=== PATIENT | female | born 1970 | race Caucasian/White ===

== ENCOUNTER 2018-06-10 17:37 | Inpatient (IN) | payer OTHER ==
[~2018-06-10] VITALS: Ht 165.1 cm; Wt 93.1 kg
[2018-06-10 18:40] LABS: BASOPHILS ABSOLUTE AUTO 0.02 K/mm3 (0.00-0.23); BASOPHILS PERCENT AUTO 1 % (0-2); EOSINOPHILS PERCENT AUTO 0 % (0-6); Hematocrit 43.3 % (33.0-51.0); IMMATURE GRAN ABSOLUTE AUTO 0.01 K/mm3 (0.00-0.10); IMMATURE GRAN PERCENT AUTO 0 % (0-1); LYMPHOCYTES ABSOLUTE AUTO 0.43 K/mm3 (0.84-5.20); LYMPHOCYTES PERCENT AUTO 13 % (21-46); MONOCYTES PERCENT AUTO 3 % (4-13); Mean Corpuscular HGB 29.7 pg (26.0-34.0); Mean Corpuscular HGB Conc 32.3 g/dL (31.5-36.5); Mean Corpuscular Volume 92 fL (80-100); Mean Platelet Volume 10.4 fL (9.1-12.4); NEUTROPHILS ABSOLUTE AUTO 2.67 K/mm3 (1.96-9.15); NEUTROPHILS PERCENT AUTO 83 % (41-73); Platelet Count 99 K/mm3 (150-400); RDW Coefficient Variation 12.7 % (11.7-14.2); RDW Standard Deviation 43.2 fL (35.1-46.3); Red Blood Cell Count 4.71 M/mm3 (3.80-5.20); White Blood Cell Count 3.23 K/mm3 (4.00-11.30)
[2018-06-10 19:01] LABS: Troponin I 0.017 ng/mL (0.000-0.040)
[2018-06-10 19:02] LABS: Alanine Aminotransfer (ALT/SGP 543 U/L (12-78); Albumin/Globulin Ratio 0.7 (0.8-1.8); Alk Phos 353 U/L (50-136); Anion Gap 8 mmol/L (6-16); Aspartate Aminotrans (AST/SGOT 619 U/L (12-37); Bilirubin, Total 0.5 mg/dL (0.1-1.0); Blood Urea Nitrogen 16 mg/dL (8-24); Bun/Creatinine Ratio 20.4 (12.0-20.0); CO2, Blood 22 mmol/L (21-32); Calcium, Blood 7.9 mg/dL (8.5-10.1); Chloride, Blood 102 mmol/L (98-108); Creatinine, Blood 0.79 mg/dL (0.40-1.00); Globulin, Blood 4.4 g/dL (2.2-4.0); Glomerular Filtration Rate >60 (60-); Glucose, Blood 218 mg/dL (70-99); Potassium, Blood 3.9 mmol/L (3.5-5.5); Sodium, Blood 132 mmol/L (136-145); Total Protein, Blood 7.4 g/dL (6.4-8.2)
[2018-06-10 19:11] LABS: Base Excess Venous 4.3 mmol/L; Bicarbonate Venous 27.5 mmol/L (24.0-30.0); PCO2 Venous 41.2 mmHg (38-42); PO2 Venous 42.8 mmHg (38-42); pH Blood Venous 7.45 (7.34-7.37)
[2018-06-10] MEDS ORDERED: TYLENOL COLD &1 EAC1 PO (20:32)
[2018-06-10] MEDS ORDERED: GUAIFENESIN DA473 ML (20:33)
[2018-06-10] MEDS ORDERED: IBUP600 PO (20:33)
[2018-06-10] MEDS ORDERED: ACET325 PO (22:49)
[2018-06-10] MEDS ORDERED: [UNRECOGNIZED DRUG - REMARK] PO (22:51)
[2018-06-10] MEDS ORDERED: TUMS200 MG PO (22:52)
[2018-06-10] MEDS ORDERED: [UNRECOGNIZED DRUG - SUPPLY] PO (22:54)
[2018-06-10] MEDS ORDERED: [UNRECOGNIZED DRUG - OTHER] PO (22:55)
[2018-06-10] MEDS ORDERED: MELATONIN5 M1 PO (22:56)
[2018-06-11 05:22] LABS: Hematocrit 39.7 % (33.0-51.0); Hemoglobin 13.1 g/dL (11.5-16.0); Mean Corpuscular HGB 29.1 pg (26.0-34.0); Mean Platelet Volume 10.7 fL (9.1-12.4); Platelet Count 122 K/mm3 (150-400); RDW Coefficient Variation 12.7 % (11.7-14.2); RDW Standard Deviation 41.1 fL (35.1-46.3); White Blood Cell Count 2.63 K/mm3 (4.00-11.30)
[2018-06-11 05:31] LABS: Mean Corpuscular Volume 88 fL (80-100)
[2018-06-11 05:40] LABS: Alanine Aminotransfer (ALT/SGP 507 U/L (12-78); Albumin, Blood 2.8 g/dL (3.4-5.0); Albumin/Globulin Ratio 0.7 (0.8-1.8); Alk Phos 372 U/L (50-136); Anion Gap 5 mmol/L (6-16); Aspartate Aminotrans (AST/SGOT 543 U/L (12-37); Bilirubin, Total 0.6 mg/dL (0.1-1.0); Blood Urea Nitrogen 13 mg/dL (8-24); Bun/Creatinine Ratio 18.2 (12.0-20.0); CO2, Blood 29 mmol/L (21-32); Calcium, Blood 7.6 mg/dL (8.5-10.1); Chloride, Blood 99 mmol/L (98-108); Creatinine, Blood 0.72 mg/dL (0.40-1.00); Globulin, Blood 4.1 g/dL (2.2-4.0); Glomerular Filtration Rate >60 (60-); Glucose, Blood 258 mg/dL (70-99); Potassium, Blood 3.8 mmol/L (3.5-5.5); Sodium, Blood 133 mmol/L (136-145); Total Protein, Blood 6.9 g/dL (6.4-8.2)
--- NOTE | 2018-06-11 07:27 | NUR ---
Rn summary: Patient is alert and oriented. Pt was admitted due to Inf A and PNA with hypoxia. Pt had a temp of 102.9 in the ED. Temp remained 102.4 2 hours after tylenol and motrin given. Ice to back of neck and under arms for about an hour. Temp down to 100.4. Pt has had increasing O2 needs during the shift. Pt started at 4 liters on admit advance to 10 liters and then 15 to try and get sats to stay above 90. Pt was running at 83% and would go lower after coughing. Respiratory rate 28-32, shallow, no real work of breathing noted. Pt just feels sick. SOB when up to BSC. Lung sound clear, cough is dry and non productive. Respiratory care in and out to assess patient. Recommends the heated high flow O2. Dr. Mello notified of changes. Pt put on Air Vo at 50 liters, 86% [id number] sating at 91-93%. Pt temp 101.1 at 0501 medicated again with tylenol and robitussin DM for cough. Pt is resting at this time. Report to on coming RN. Call light remains in reach. Pt calls appropriately.
[2018-06-11 09:34] LABS: Adenovirus Not Detected (NOT DETECT); Bordetella pertussis Not Detected (NOT DETECT); Chlamydophila pneumoniae Not Detected (NOT DETECT); Coronavirus 229E Not Detected (NOT DETECT); Coronavirus HKU1 Not Detected (NOT DETECT); Coronavirus NL63 Not Detected (NOT DETECT); Coronavirus OC43 Not Detected (NOT DETECT); Human Metapneumovirus Not Detected (NOT DETECT); Human Rhinovirus/Enterovirus Not Detected (NOT DETECT); Influenza A Equivocal (NOT DETECT); Influenza A/2009-H1 Not Detected (NOT DETECT); Influenza A/H1 Not Detected (NOT DETECT); Influenza A/H3 Not Detected (NOT DETECT); Influenza B Not Detected (NOT DETECT); Mycoplasma pneumoniae Not Detected (NOT DETECT); Parainfluenza Virus 1 Not Detected (NOT DETECT); Parainfluenza Virus 2 Not Detected (NOT DETECT); Parainfluenza Virus 3 Not Detected (NOT DETECT); Parainfluenza Virus 4 Not Detected (NOT DETECT); Respiratory Syncytial Virus Not Detected (NOT DETECT)
--- NOTE | 2018-06-11 19:11 | NUR ---
PATIENT STATES SOME IMPROVEMENT OF THE COURSE OF THE SHIFT. ELEVATED A1C. STILL ON HIGH VOLUME AIRVO. AT BEDSIDE. UP WITH A STANDBY ASSIST
--- NOTE | 2018-06-12 03:32 | NUR ---
PT HAS BEEN ON HIGH FLOW HEATED OXYGEN AND SATES 85 TO 90% ON 50 TO 60 L HIGH FLOW. PT UPRIGHT IN BED AND ABLE TO COMMUNICATE. ATE SNACK TAKING ORAL FLUIDS. SALINE LOCKED IV FLUIDS. PT HAD SPOUSE AT BEDSIDE EARLIER IN SHIFT AND HE WAS SUPPORTIVE. LUNG SOUNDS COARSE AND NONPROD COUGH. NO SPUTUM SAMPLE HAS BEEN OBTAINED. SATS WERE 85 TO 86 ON [address] DOMINGUEZ UPDATED WE ARE UNABLE TO MAINTAIN SATS GREATER THAN 90% ON HIGH FLOW MAX. CXR STAT PORTABLE ORDERED AND RT CALLED FOR BIPAP. THEY WILL START BIPAP AND TRANSFER TO PCU [facility]. WILL NOTIFY SPOUSE PT BEING TRANSFERRED TO PCU FOR BIPAP FOR ACUTE RESP FAILURE.
--- NOTE | 2018-06-12 03:46 | NUR ---
CALLED SPOUSE KENDRA ABOUT TRANSFER TO PCU FOR BIPAP VENT SUPPORT. LEFT MESSAGE FOR SPOUSE. CALLING RN CONSTANCE CABRERA IN PCU ON PT TRANSFER.
--- NOTE | 2018-06-12 05:07 | NUR ---
transferred pt to PCU 4 with acute hypoxic resp failure.
[2018-06-12 05:34] LABS: BASOPHILS ABSOLUTE AUTO 0.01 K/mm3 (0.00-0.23); BASOPHILS PERCENT AUTO 0 % (0-2); EOSINOPHILS PERCENT AUTO 0 % (0-6); Hematocrit 38.6 % (33.0-51.0); Hemoglobin 12.7 g/dL (11.5-16.0); Mean Corpuscular HGB 29.5 pg (26.0-34.0); Mean Corpuscular HGB Conc 32.9 g/dL (31.5-36.5); Mean Corpuscular Volume 90 fL (80-100); Mean Platelet Volume 10.5 fL (9.1-12.4); Platelet Count 189 K/mm3 (150-400); RDW Coefficient Variation 12.8 % (11.7-14.2); RDW Standard Deviation 42.2 fL (35.1-46.3); White Blood Cell Count 7.76 K/mm3 (4.00-11.30)
[2018-06-12 05:35] LABS: IMMATURE GRAN ABSOLUTE AUTO 0.03 K/mm3 (0.00-0.10); IMMATURE GRAN PERCENT AUTO 0 % (0-1); LYMPHOCYTES ABSOLUTE AUTO 0.99 K/mm3 (0.84-5.20); LYMPHOCYTES PERCENT AUTO 13 % (21-46); MONOCYTES ABSOLUTE AUTO 0.33 K/mm3 (0.16-1.47); MONOCYTES PERCENT AUTO 4 % (4-13); NEUTROPHILS PERCENT AUTO 82 % (41-73)
[2018-06-12 06:03] LABS: Alanine Aminotransfer (ALT/SGP 331 U/L (12-78); Albumin, Blood 2.7 g/dL (3.4-5.0); Albumin/Globulin Ratio 0.7 (0.8-1.8); Alk Phos 330 U/L (50-136); Anion Gap 10 mmol/L (6-16); Aspartate Aminotrans (AST/SGOT 237 U/L (12-37); Bilirubin, Total 0.4 mg/dL (0.1-1.0); Blood Urea Nitrogen 19 mg/dL (8-24); Bun/Creatinine Ratio 27.4 (12.0-20.0); CO2, Blood 26 mmol/L (21-32); Calcium, Blood 8.2 mg/dL (8.5-10.1); Chloride, Blood 103 mmol/L (98-108); Creatinine, Blood 0.69 mg/dL (0.40-1.00); Glomerular Filtration Rate >60 (60-); Glucose, Blood 311 mg/dL (70-99); Potassium, Blood 4.1 mmol/L (3.5-5.5); Sodium, Blood 139 mmol/L (136-145); Total Protein, Blood 6.7 g/dL (6.4-8.2)
--- NOTE | 2018-06-12 06:29 | NUR ---
SHIFT SUMMARY PT RESTING IN ROOM. ARRIVED TO UNIT FROM MEDICAL FLOOR IN RESP DISTRESS. PT RESP WAS UNEVEN AND LABORED ON AIRVO AT 60L W/ Fi02 @ 94%. PT ALSO HAD NONREBREATHER ON AT 15L. SATS REMAINED AT 85%. RT ATTEMPTED MULTIPLE TIMES TO GET PT TO GO ON BIPAP TO ASSIST WITH VENTILATION. PT BECAME VERY ANXIOUS AND TEARFUL STATING WAS VERY CLAUSTROPHOBIC. PT MEDICATED FOR ANXIETY AND BIPAP ATTEMPTED AGAIN, PT UNABLE TO TOLERATE MASK, AND HAD EPISODE OF COUGHING. AFTER COUGHING, SATS WERE NOTED TO HAVE INCREASED TO 90% AFTER COUGHING. RT ENCOURAGED PT TO CONTINUE COUGHING TO TRY AND CLEAR LUNGS TO INCREASE ASATS. PTUTILIZING COUGH AT THIS TIME AND REMAINS ON AIRVO AND NRB MASK. WILL CONT TO MONITOR. CALL LIGHT IN REACH.
--- NOTE | 2018-06-12 18:34 | NUR ---
SHIFT SUMMARY ASSUMED CARE OF PT APPROX. 0700. PT A&P X4. ASSESSMENT COMPLETED, VITAL SIGNS STABLE. PT ON 60L/MIN AT 95% ON AIRVO WITH NONREBREATHER MASK ON WITH 15L OXYGEN. OXYGEN SATS RANGING FROM 88-90 WITH THIS. THROUGHOUT SHIFT PT HAD INCREASED ANXIETY AND OCCASION COUGH WHICH INCREASED SHORTNESS OF BREATH. PT ALSO HAD INCREASED SHORTNESS OF BREATH WITH EXERCTION BUT WAS ABLE TO USE BEDSIDE COMMODE NEEDED. FAMILY AT BEDSIDE INTTERMITTENTLY. PT REMAINS STABLE AT THIS TIME. RECIEVED ORDERS TO TRANSFER PT TO ICU. WILL CALL REPORT TO RN AND MONITOR PT UNTIL PT DEPARTS UNIT. BED IN LOW POSITION, CALL LIGHT IN REACH AND PT DENIES ANY NEEDS AT THIS TIME.
--- NOTE | 2018-06-12 20:00 | NUR ---
PT TRANSFERS FROM PCU UNIT TO ICU 13 UNDER PCU STATUS. PT IS VERY TACHYMPNEIC UPON ARRIVAL TO ROOM AT 1902. PT'S ACCOMPANIES PT TO ROOM. PT ON HIGH FLOW AERVO WITH 60 LITER FLOW AND 93 PERCENT OXYGEN. PT ABLE TO MAINTAIN SATURATIONS 88-92 PERCENT. STATES THAT SHE IS NOT ABLE TO WEAR CPAP MASK SECONDARY TO BEING CLAUSTROPHOBIC. PT QUICKLY DESATURATES WITH COUGH AND WITH TALKING. WILL REVIEW CHART AND PLAN OF CARE FOR THIS PT.
--- NOTE | 2018-06-13 | NUR ---
WITH MUCH ENCOURAGEMENT, PT HAS BEEN ABLE TO WEAR CPAP. DID GIVE 1 MG ATIVAN IV TO HELP WITH HER ANXIETY. CPAP STARTED WITH PRESSURE 5 AND 100 PERCENT FIO2. SUBSEQUENTLY PT HAS BEEN INCREASED TO A PRESSURE OF 8 AND FIO2 WAS DECREASED TO 85 PERCENT. PT MAINTAINS SATURATIONS >90. WILL CONTINUE TO MONITOR PT.
[2018-06-13 04:11] LABS: Hemoglobin 12.3 g/dL (11.5-16.0); Mean Corpuscular HGB Conc 32.4 g/dL (31.5-36.5); Mean Corpuscular Volume 90 fL (80-100); Mean Platelet Volume 10.3 fL (9.1-12.4); Platelet Count 229 K/mm3 (150-400); RDW Coefficient Variation 12.8 % (11.7-14.2); RDW Standard Deviation 42.5 fL (35.1-46.3); Red Blood Cell Count 4.24 M/mm3 (3.80-5.20); White Blood Cell Count 11.15 K/mm3 (4.00-11.30)
[2018-06-13 04:40] LABS: Alanine Aminotransfer (ALT/SGP 247 U/L (12-78); Albumin, Blood 2.7 g/dL (3.4-5.0); Albumin/Globulin Ratio 0.7 (0.8-1.8); Alk Phos 291 U/L (50-136); Anion Gap 9 mmol/L (6-16); Aspartate Aminotrans (AST/SGOT 132 U/L (12-37); Bilirubin, Total 0.4 mg/dL (0.1-1.0); Blood Urea Nitrogen 24 mg/dL (8-24); Bun/Creatinine Ratio 36.4 (12.0-20.0); CO2, Blood 28 mmol/L (21-32); Calcium, Blood 8.3 mg/dL (8.5-10.1); Chloride, Blood 104 mmol/L (98-108); Creatinine, Blood 0.66 mg/dL (0.40-1.00); Glomerular Filtration Rate >60 (60-); Glucose, Blood 315 mg/dL (70-99); Potassium, Blood 4.3 mmol/L (3.5-5.5); Sodium, Blood 141 mmol/L (136-145); Total Protein, Blood 6.7 g/dL (6.4-8.2)
[2018-06-13 06:18] LABS: HBSAG SCREEN Negative (Negative); HEP A AB, IGM Negative (Negative); HEP B CORE AB, IGM Negative (Negative); HEP C VIRUS AB 0.1 (0.0-0.9)
--- NOTE | 2018-06-13 06:50 | NUR ---
PT HAS BEEN ABLE TO TOLERATE CPAP AT PRESSURE OF 8. FIO2 85 PERCENT. PT HAS BEEN ABLE TO GET UP TO BEDSIDE COMMODE WHERE SHE BECOMES SOMEWHAT DYSPNEIC. KEEPS CPAP MASK IN PLACE DURING TRANSFER TO COMMODE AND BACK TO BED. PT DOES BECOME SOMEWHAT ANXIOUS AND NEEDS TO BE ENCOURAGED. WILL CONTINUE TO MONITOR PT, AND WILL REPORT OFF TO ONCOMING RN.
--- NOTE | 2018-06-13 09:01 | NUR ---
CARE ASSUMED CARE AND REPORT ASSUMED FROM JOSE ALBRECHT. PT SITTING UP IN BED WATCHING TV. DENIES PAIN WHEN ASKED. BP STABLE AND AFEBRILE. NSR, HR 80S. SPO2 85-90% ON AIRVO 60L, 94%. PT TOLERATED WEARING CPAP THROUGH NIGHT PER YAN RN. PT IS ANXIOUS AT THIS TIME. UPDATED PT ON PLAN OF CARE; PT VERABLIZES UNDERSTANDING. WHEN TALKING ON PHONE, PT'S SPO2 DROPS TO 83%. PERIPHERAL IV REMOVED AND RESTARTED. CALL LIGHT WITHIN REACH. TOLERATED EATING BREAKFAST. WILL CONTINUE TO MONITOR.
--- NOTE | 2018-06-13 12:45 | NUR ---
REASSESSMENT PT WAS NOT TOLERATING AIRVO AT 60L, 94% WITH NRB 15L; SHE WAS DESATURATING DOWN TO 84%. CPAP 8, FIO2 100% PLACED ON PT AND MD BLANCHARD CALLED TO BEDSIDE. HE HAD LONG CONVERSATION WITH PT AND ABOUT POSSIBLE NEED FOR INTUBATION AND THEY BOTH VERBALIZE UNDERSTANDING. MIDE CHANGED TO BIPAP 12/8, 100%. PT NOW SATTING AT 97% AND O2 BEING DECREASED. ATIVAN 1 MG IVP GIVEN TO HELP PT RELAX. SHE IS NOW SLEEPING. BEDSIDE. NSR 70-80S AND BP WNL. WILL CONTINUE TO MONITOR.
--- NOTE | 2018-06-13 16:29 | NUR ---
REASSESSMENT PT TAKEN TO CT FOR CHEST CT WITH RT, RN, AND SKEWER UP. TOELRATED WELL. REMAINED ON BIPAP ENTIRE TRIP. PT NOW BACK IN ROOM AND CONTINUES TO TOLERATE BEING ON BIPAP 12/8, FIO2 90%. LUNG SOUNDS DIMINISHED IN UPPER MARTELL WITH FINE CRACKLES IN BASES. FAMILY BEDSIDE. PT APPEARS TIRED WITH SUNKEN AND DARK EYES. MAINTAINING SPO2 AT 91-95 %. NSR, HR 70S. BP STABLE. AFEBRILE 98.6. WILL CONTINUE TO MONITOR.
--- NOTE | 2018-06-13 18:41 | NUR ---
SHIFT SUMMARY PT CHANGED FROM PCU STATUS TO ICU AFTER DESATURATING AND REQUIRING HIGH O2 DEMANDS. SEE NOTES FROM EARLIER TODAY WITH TRNEDS. PT TOLERATED EATING DINNER AND WAS OFF BIPAP FOR 30 MINUTES. NOW BACK ON BIPAP 04/05, FIO2 90%. FAMILY BEDSIDE. CHEST CT COMPLETED. IV SALINE LOCKED. NSR 80S AND BP STABLE. AFEBRILE. WILL GIVE BEDSIDE, HANDOFF REPORT TO NOC RN.
--- NOTE | 2018-06-13 20:27 | NUR ---
STATES PT SNORES AND QUITS BREATHING AT NIGHT. PT COULD BENIFET FROM A SLEEP STUDY
--- NOTE | 2018-06-13 21:15 | NUR ---
PT RESTING IN BED ON BIPAP. STATES SHE IS GETTING ANXIOUS WITH THE BIPAP. ATIVAN GIVEN. PT STATES SHE WOULD LIKE A PICKETT. PT IS ALSO VERY SOB WITH EXERTION AND DEOXYGENATES. WILL PLACE PICKETT.
[2018-06-13 21:43] LABS: Source, Urine Catheter
[2018-06-13 21:45] LABS: Bilirubin, Urine Neg (Neg); Blood, Urine 1+ (Neg); Glucose Qualitative, Urine 4+ (Neg); Ketones, Urine Neg (Neg); Leukocyte Esterase, Urine Neg (Neg); Nitrite, Urine Neg (Neg); Protein, Urine 2+ (Neg); Urobilinogen, Urine NORM (Normal)
[2018-06-13 22:13] LABS: Appearance, Urine Clear (Clear); Bacteria Few /hpf; Color, Urine Yellow (P-Yellow); Red Blood Cells, Urine 0-2 /hpf (0-2); Squamous Epithelial Cells Few /hpf (Few); White Blood Cells, Urine 0-2 /hpf (0-5)
[2018-06-14 04:20] LABS: BASOPHILS ABSOLUTE AUTO 0.02 K/mm3 (0.00-0.23); BASOPHILS PERCENT AUTO 0 % (0-2); EOSINOPHILS PERCENT AUTO 0 % (0-6); Hematocrit 37.7 % (33.0-51.0); Hemoglobin 12.3 g/dL (11.5-16.0); IMMATURE GRAN ABSOLUTE AUTO 0.14 K/mm3 (0.00-0.10); IMMATURE GRAN PERCENT AUTO 1 % (0-1); LYMPHOCYTES ABSOLUTE AUTO 0.75 K/mm3 (0.84-5.20); LYMPHOCYTES PERCENT AUTO 7 % (21-46); MONOCYTES ABSOLUTE AUTO 1.01 K/mm3 (0.16-1.47); MONOCYTES PERCENT AUTO 10 % (4-13); Mean Corpuscular HGB 29.6 pg (26.0-34.0); Mean Corpuscular HGB Conc 32.6 g/dL (31.5-36.5); Mean Corpuscular Volume 91 fL (80-100); Mean Platelet Volume 9.9 fL (9.1-12.4); NEUTROPHILS ABSOLUTE AUTO 8.67 K/mm3 (1.96-9.15); NEUTROPHILS PERCENT AUTO 82 % (41-73); Platelet Count 245 K/mm3 (150-400); RDW Coefficient Variation 12.5 % (11.7-14.2); RDW Standard Deviation 41.9 fL (35.1-46.3); Red Blood Cell Count 4.16 M/mm3 (3.80-5.20); White Blood Cell Count 10.59 K/mm3 (4.00-11.30)
[2018-06-14 04:40] LABS: Albumin, Blood 2.8 g/dL (3.4-5.0); Anion Gap 8 mmol/L (6-16); Blood Urea Nitrogen 23 mg/dL (8-24); Bun/Creatinine Ratio 42.6 (12.0-20.0); CO2, Blood 29 mmol/L (21-32); Calcium, Blood 8.1 mg/dL (8.5-10.1); Chloride, Blood 102 mmol/L (98-108); Creatinine, Blood 0.54 mg/dL (0.40-1.00); Glomerular Filtration Rate >60 (60-); Glucose, Blood 308 mg/dL (70-99); Potassium, Blood 4.3 mmol/L (3.5-5.5); Sodium, Blood 139 mmol/L (136-145)
--- NOTE | 2018-06-14 06:02 | NUR ---
SUMMARY PT RESTING WITH BIPAP ON. WORE BIPAP ALL NIGHT. SMALL BREAKS FOR DRINKS OF WATER AND PO CARE BUT PT DESATS INTO LOW 80'S QUICKLY. USES CALL LIGHT APPROPRIATELY. NO SIGN OF DISTRESS.
--- NOTE | 2018-06-14 08:30 | NUR ---
CARE ASSUMED CARE AND REPORT ASSUMED FROM LC ALBRECHT. PT SLEEPING BUT EASILY AROUSES. SWITCHED FROM BIPAP TO AIRVO 60L, 94%. SPO2 91%. LUNG SOUNDS DIMINISHED IN UPPER MARTELL WITH FINE CRACKLES IN BASES. DENIES PAIN AT THIS TIME. TEMP 99.0. PICKETT CATH SECURED AND PATENT. PT STATES SHE HAS NOT HAD BM IN 5 DAYS; STOOL SOFTENERS ADMINISTERED; WILL MONITOR. BP STABLE AND WNL. TOLERATED EATING BREAKFAST THIS AM. WILL CONTINUE TO MONITOR.
--- NOTE | 2018-06-14 11:57 | NUR ---
REASSESSMENT NO CHANGE IN LUNG SOUNDS. PT MAINTAINED ADEQUATE SPO2 OF 88-94% WHILE ON AIRVO 60L FOR 3.5 HOURS. HAD EPISODE OF COUGHING AND BECAME SHORT OF BREATH WITH RAPID DECLINE IS SATURATION, DOWN TO 83% SPO2. BIPAP APPLIED AND PT RECOVERED AND IS NOW TOLERATING. BIPAP 12/10, FIO2 70%. FAMILY UPDATED ON EVENTS AND FURTHER TREATMENT PLAN. PT ABLE TO SLEEP FEW MORE HOURS THIS AM WITH NO VISITORS. PT SWEATY AND C/O BEING HOT; TEMP 99.5. TYELENOL 650 MG PO GIVEN FOR FEVER CONTROL; WILL MONITOR. WILL CONTINUE TO MONITOR.
--- NOTE | 2018-06-14 16:06 | NUR ---
REASSESSMENT PT UP TO BEDSIDE COMMODE AND HAD LARGE SOFT, BOWEL MOVEMENT. TOLERATED SITTING UP WHILE RECEIVING BEDBATH AND LINEN CHANGE. CONTINUES TO DENY PAIN. REMAINS WEARING AIRVO 60L, FIO2 94%. PT NOW SLEEPING. VSS. WILL CONTINUE TO MONITOR.
--- NOTE | 2018-06-14 18:15 | NUR ---
SHIFT SUMMARY PT SLEPT OFF/ON MOST OF DAY. UP TO BEDSIDE COMMODE FOR 1 LARGE BOWEL MOVEMENT AND WAS ABLE TO SIT UP FOR APPROX 30 MINUTES WHILE RECEIVING BATH AND LINEN CHANGE. TOLERATING AIRVO 60L, FIO2 94%. FAMILY BEDSIDE INTERMITTENTLY DURING SHIFT. BLOOD SUGAR INCREASED THROUGHOUT SHIFT; WITH AFTERNOON RESULT AT 340. MD PETERSON INFORMED BUT NO NEW ORDERS. RECEIVED TYLENOL 650 MG IVP X 1 DURING SHIFT. WILL GIVE BEDSIDE, HANDOFF REPORT TO YAN ALBRECHT.
--- NOTE | 2018-06-14 20:58 | NUR ---
PT RESTING IN BED ON AIRVO. DOES NOT WANT TO GO ON BIPAP YET. TRYING TO EAT SOME SOUP FOR DINNER NOW. FAMILY AT BEDSIDE. SEE ASSESSMENT.
[2018-06-15 04:01] LABS: BASOPHILS ABSOLUTE AUTO 0.01 K/mm3 (0.00-0.23); BASOPHILS PERCENT AUTO 0 % (0-2); EOSINOPHILS PERCENT AUTO 0 % (0-6); Hemoglobin 12.5 g/dL (11.5-16.0); IMMATURE GRAN ABSOLUTE AUTO 0.13 K/mm3 (0.00-0.10); IMMATURE GRAN PERCENT AUTO 1 % (0-1); LYMPHOCYTES ABSOLUTE AUTO 0.76 K/mm3 (0.84-5.20); LYMPHOCYTES PERCENT AUTO 8 % (21-46); MONOCYTES ABSOLUTE AUTO 0.81 K/mm3 (0.16-1.47); MONOCYTES PERCENT AUTO 8 % (4-13); Mean Corpuscular HGB 29.2 pg (26.0-34.0); Mean Corpuscular HGB Conc 32.9 g/dL (31.5-36.5); Mean Corpuscular Volume 89 fL (80-100); Mean Platelet Volume 9.8 fL (9.1-12.4); NEUTROPHILS ABSOLUTE AUTO 8.22 K/mm3 (1.96-9.15); NEUTROPHILS PERCENT AUTO 83 % (41-73); Platelet Count 241 K/mm3 (150-400); RDW Coefficient Variation 12.2 % (11.7-14.2); RDW Standard Deviation 39.7 fL (35.1-46.3); Red Blood Cell Count 4.28 M/mm3 (3.80-5.20); White Blood Cell Count 9.93 K/mm3 (4.00-11.30)
[2018-06-15 04:24] LABS: Albumin, Blood 2.7 g/dL (3.4-5.0); Anion Gap 8 mmol/L (6-16); Blood Urea Nitrogen 26 mg/dL (8-24); Bun/Creatinine Ratio 47.1 (12.0-20.0); CO2, Blood 29 mmol/L (21-32); Calcium, Blood 8.1 mg/dL (8.5-10.1); Chloride, Blood 101 mmol/L (98-108); Creatinine, Blood 0.55 mg/dL (0.40-1.00); Glomerular Filtration Rate >60 (60-); Glucose, Blood 284 mg/dL (70-99); Phosphorus, Blood 3.8 mg/dL (2.5-4.9); Potassium, Blood 4.4 mmol/L (3.5-5.5); Sodium, Blood 138 mmol/L (136-145)
--- NOTE | 2018-06-15 06:32 | NUR ---
SUMMARY PT RESTING IN BED ON AIRVO 55L 89%. PT WORE AIRVO UNTIL AROUND MIDNIGHT THEN HAD A COUGHING SPELL AND BECAME SOB. PLACED BIPAP AT THAT TIME AND PT WORE BIPAP UNTIL AROUD 0530, THEN BACK TO AIRVO. NO OTHER CHANGES.
--- NOTE | 2018-06-15 07:20 | NUR ---
ASSUMED CARE OF PATIENT; SEE ASSESSMENT CHARTING FOR DETAILS. PATIENT SLEEPING; AROUSES TO VERBAL STIMULI BUT BACK TO SLEEP WHEN NOT DISTURBED. MAEW AND STRONG IT DIRECTOR TO BILAT. HANDS. WEARING AIRVO OXYGEN DEVICE; CURRENT SETTINGS: FIO2 IS AT 89% AND AIRFLOW AT 55L/MIN; SEE R.T. NOTES FOR SPECIFICS. MONITOR WITH NSR WITH OCCASIONAL EPISODE OF PVC'S; VSS/LOW GRADE FEVER. LUNGS WITH CRACKLES T/O BILAT. BASES AND RML. PICKETT DRAINING FAIR AMOUNTS OF MED. YELLOW URINE. FAMILY VERY SUPPORTIVE AND CONCERNED. OVER ALL STATUS IMPROVING.
--- NOTE | 2018-06-15 11:30 | NUR ---
DR. BLANCHARD HERE; INFORMED PATIENT SHE IS IMPROVING. PATIENT MORE ALERT; DENIES ACUTE PAIN. AIRVO SETTINGS UNCHANGED AT PRESENT. CBG 244; COVERAGE WITH NOVOLOG. SEE NEW ORDERS.
--- NOTE | 2018-06-15 12:30 | NUR ---
ASSISTED PATIENT TO DANGLE POSITION; DAUGHTERS AND SON IN ROOM AND ATTENTIVE. WEARING MASKS WHEN THEY ARE WITHIN 3 FEET OF PATIENT. HAIR WASHED WITH SHAMPOO CAP AND THEN DAUGHTERS BRUSHED OUT PATIENTS' HAIR AND BRAIDED IT FOR HER. TIRED AND WANTING TO LAY BACK IN BED. APPETITE VERY LIMITED BUT TAKING FLUIDS AND MEDS. WITHOUT DIFFFICULTY.
--- NOTE | 2018-06-15 13:20 | NUR ---
ASSISTED UP TO BSC (1 PERSON ASSIST); HAD HUGE/SOFT-BROWN STOOL. RN CLEANSED PATIENT AND ASSISTED HER BACK TO BED.
--- NOTE | 2018-06-15 14:00 | NUR ---
TYLENOL 650MG PO TABS AND ROBITUSSIN DM 10ML GIVEN. COUGH IRRITATING AND DRY. RN WORKED WITH PATIENT ON INCENTIVE SPIROMETER WELL FLUTTER VALVE; MANAGED TO COUGH DEEPLY/ETC. BUT NON-PRODUCTIVE. RN LEFT SPUTUM CUP, AT BEDSIDE; PATIENT TO USE IF COUGHS UP MUCUS FROM DEEP CHEST.
--- NOTE | 2018-06-15 14:10 | NUR ---
R.T. REDUCED AIRVO FIO2 (GRADUALLY) T/O DAY; CURRENTLY DOWN TO 66%; REMAINS WITH 55L/MIN.
--- NOTE | 2018-06-15 17:58 | NUR ---
SUMMARY: OVERALL IMPROVED. LESS DYSPNEA NOTED WITH TALKING AND EATING. APPETITE REMAINS LIMITED BUT NO GI UPSET. SPOUSE AT BEDSIDE MOST OF AFTERNOON; ADULT CHILDREN HAD TO LEAVE EARLIER AFTERNOON TO RETURN HOME (LIVE OUT OF AREA). 1200CC OF URINE FROM F/C; CLEARER IN COLOR. SWELLING OF FEET LESS PREVALENT. VSS AND MONITOR REMAINS NSR. LUNGS WITH INTERMITTENT RHONCHI IN UPPER AIRWAYS BUT REDUCE WITH COUGHING; COUGH MOIST BUT NON-PRODUCTIVE AT THIS TIME; SPUTUM CUP AT BEDSIDE FOR SPECIMENT COLLECTION. WILL REPORT TO ONCOMING RN.
--- NOTE | 2018-06-15 22:27 | NUR ---
PT SITTING UP IN BED WATCHING TV. STATES HER SOB AND BREATHING SEEMS TO BE IMPROVING. ON AIRVO. NO SIGN OF DISTRESS, NO REQUESTS. SEE ASSESSMENT.
[2018-06-16 03:55] LABS: BASOPHILS ABSOLUTE AUTO 0.01 K/mm3 (0.00-0.23); BASOPHILS PERCENT AUTO 0 % (0-2); EOSINOPHILS PERCENT AUTO 0 % (0-6); Hematocrit 37.7 % (33.0-51.0); Hemoglobin 12.6 g/dL (11.5-16.0); IMMATURE GRAN ABSOLUTE AUTO 0.13 K/mm3 (0.00-0.10); IMMATURE GRAN PERCENT AUTO 1 % (0-1); LYMPHOCYTES ABSOLUTE AUTO 0.61 K/mm3 (0.84-5.20); LYMPHOCYTES PERCENT AUTO 5 % (21-46); MONOCYTES ABSOLUTE AUTO 0.55 K/mm3 (0.16-1.47); MONOCYTES PERCENT AUTO 5 % (4-13); Mean Corpuscular HGB Conc 33.4 g/dL (31.5-36.5); Mean Corpuscular Volume 87 fL (80-100); Mean Platelet Volume 9.9 fL (9.1-12.4); NEUTROPHILS ABSOLUTE AUTO 9.98 K/mm3 (1.96-9.15); NEUTROPHILS PERCENT AUTO 88 % (41-73); Platelet Count 236 K/mm3 (150-400); RDW Coefficient Variation 11.8 % (11.7-14.2); RDW Standard Deviation 37.9 fL (35.1-46.3); Red Blood Cell Count 4.34 M/mm3 (3.80-5.20); White Blood Cell Count 11.28 K/mm3 (4.00-11.30)
[2018-06-16 04:11] LABS: Albumin, Blood 2.7 g/dL (3.4-5.0); Anion Gap 7 mmol/L (6-16); Blood Urea Nitrogen 23 mg/dL (8-24); Bun/Creatinine Ratio 43.7 (12.0-20.0); CO2, Blood 29 mmol/L (21-32); Calcium, Blood 8.3 mg/dL (8.5-10.1); Chloride, Blood 101 mmol/L (98-108); Creatinine, Blood 0.53 mg/dL (0.40-1.00); Glomerular Filtration Rate >60 (60-); Glucose, Blood 284 mg/dL (70-99); Phosphorus, Blood 3.6 mg/dL (2.5-4.9); Potassium, Blood 4.4 mmol/L (3.5-5.5); Sodium, Blood 137 mmol/L (136-145)
--- NOTE | 2018-06-16 06:38 | NUR ---
PT DID WELL ON AIRVO ALL NIGHT. NO SIGNS OF DISTRESS. NO CHANGES THIS SHIFT.
--- NOTE | 2018-06-16 07:52 | NUR ---
CARE ASSUMED CARE AND REPORT ASSUMED FROM LC ALBRECHT. PT SLEEPING BUT EASILY AROUSABLE. DENIES PAIN THIS AM. A/O X 3 AND HAS BETTER AFFECT THAN 2 DAYS AGO. TEMP 98.6. VSS. NSR, HR 70S AND BP WNL. TOLERATING AIRVO AT 55L, FIO2 70% WITH SPO2 91%. LUNG SOUNDS ARE CLEAR IN UPPER LOBES AND HAVE FINE CRACKLES IN BASES. IV SALINE LOCKED. PT NOW SITTING UP EATING BREAKFAST WITH NO DISTRESS. WILL CONTINUE TO MONITOR.
--- NOTE | 2018-06-16 16:40 | NUR ---
REASSESSMENT PT REMAINS DOING WELL AND IN NO RESP DISTRESS WITH AIRVO AT 55L, 70%. UP TO BEDSIDE COMMODE WITH MINIMAL ASSIST; HAS COUGHING EPISODES WHEN GETTING UP BUT IS ABLE TO RECOVER SATURATIONS WITHIN APPROX 5 MINUTES. DENIES PAIN. AFEBRILE. BEDSIDE. WILL CONTINUE TO MONITOR.
--- NOTE | 2018-06-16 18:07 | NUR ---
SHIFT SUMMARY PT HAD ONE EPISODE OF DESATURATION THIS AM WHILE UP TO CHAIR. OCCURED WHILE RECEIVING BEDBATH; PT HAD PERSISTENT COUGHING AND TOOK HER AWHILE TO CATCH BREATH. DENIED PAIN ENTIRE SHIFT AND HAS BEEN AFEBRILE. VSS ENTIRE SHIFT. REMAINS IN NSR. DIABETES EDUCATION DONE BY WIRE ROLLER AT BEDSIDE TODAY. UP TO BEDSIDE COMMODE THIS AFTERNOON WITH NO SIGNS OF RESP DISTRESS. PT TOLERATED WEARING AIRVO 55L, 70% FIO2. WILL GIVE BEDSIDE, HANDOFF REPORT TO NOC RN.
--- NOTE | 2018-06-16 19:20 | NUR ---
ASSUMED CARE OF PT, BEDSIDE REPORT RECEIVED. PT IS RESTING QUIETLY AND WATCHING TV WITH SIGNIFICANT OTHER AT BEDSIDE. DENIES NEEDS AT THIS TIME.
--- NOTE | 2018-06-16 20:06 | NUR ---
PT CONTINUES RESTING QUIETLY RECLINING IN BED AND WATCHING TV WITH SIGNIFICANT OTHER. DENIES PAIN, DENIES CP/PRESSURE, STATES THAT BREATHING DOES FEEL IMPROVED AT THIS TIME. DENIES N/V, DENIES NUMBNESS/TINGLING. SENTANCES ARE NOTED SHORT, SATS 96-97% WITH AIRVO AT 55 L/MIN AND 77% FIO2, LUNGS CLEAR BILAT UPPER LOBES, FINE CRACLES MID TO BASES BILAT, RESP RATE MID 20S AT REST. HRR, SINUS ON MONITOR, RATE 70S, BP MAINTAINING, PULSES FULL X 4 EXTREMITIES, SKIN PWD. ACTIVE BOWEL TONES X 4, ABD SOFT, NONTENDER TO PALP. IV ACCESS NOTED TO LEFT HAND, FLUSHES WELL, INSERTION SITE WNL, DRESSING CDI.
--- NOTE | 2018-06-17 06:29 | NUR ---
PT RESTS QUIETLY THROUGHOUT SHIFT, AIRVO CONTINUES, FIO2 AT 78% AT 0430, LUNG SOUNDS CONTINUE WITHOUT CHANGES, MAINTAINING SATS MID 90S, RESP RATE IS IMPROVED TO HIGH TEENS LOW 20S WITH SLEEP, DOES INCREASE WITH UP TO BSC AT WHICH TIMES PT REPORTS INCREASES IN ANXIETY HOWEVER SHE HAS MANAGED THESE WELL WITH NONPHARMACOLOGIC RELAXATION TECHNIQUES. SINUS RHYTHM CONTINUES, SINUS TEA AT TIMES RATE HIGH 50S TO LOW 60S AT REST, BP MAINTAINING. OTHERWISE NO ACUTE CHANGES.
--- NOTE | 2018-06-17 14:58 | NUR ---
REASSESSMENT: PT HAS BEEN RESTING IN BED, JUST GETTING OUT OF BED WHEN SHE NEEDS TO GO TO THE BATHROOM. PT STATES HER BREATHING FEELS GOOD AT REST, BUT WHEN SHE GETS UP TO THE BATHROOM SHE FEELS SHORT OF BREATH AND STARTS COUGHING, WHICH MAKES HER ANXIETY RAMP UP. PT HAS BEEN ABLE TO MANAGE HER ANXIETY WITHOUT ANY MEDICATIONS SO FAR. FIO2 HAS BEEN ABLE TO BE TITRATED DOWN TO 65%, AT REST, SO FAR. LUNGS ARE CLEAR WITH A FEW CRACKLES IN THE BASES. SHE IS SR, BP STABLE, AFEBRILE. SHE IS EATING. CONTINUING TO MONITOR.
--- NOTE | 2018-06-17 17:23 | NUR ---
SHIFT SUMMARY: PT'S OXYGEN HAS BEEN ABLE TO BE DECREASED DOWN TO 60% FIO2 TODAY, STILL AT 55L. SHE STATES EHR BREATHING FEELS OK LONG SHE ISN'T MOVING. SHE HASN'T BEEN ABLE TO PRODUCE ANY SPUTUM FOR A CULTURE TODAY. PT REMAINS SR, BP STABLE. VOIDING WITHOUT DIFFICULTY, EATING WELL. PT'S SPENT THE AFTERNOON AT THE BEDSIDE. ALL QUESTIONS HAVE BEEN ANSWERED.
--- NOTE | 2018-06-17 23:19 | NUR ---
PT ON AIRVO 55L FIO2 65%. TURNED FIO2 UP TO 70% WHEN PT GOT UP TO BSC. DID WELL AND SPO2 93% WHEN SHE GOT BACK IN BED. ABLE TO TITRATE AIRVO BACK DOWN TO 65%. GETS A LITTLE SOB WITH EXERTION BUT RECOVERS QUICKLY. NO SIGN OF DISTRESS.
[2018-06-18 04:11] LABS: BASOPHILS ABSOLUTE AUTO 0.01 K/mm3 (0.00-0.23); BASOPHILS PERCENT AUTO 0 % (0-2); EOSINOPHILS ABSOLUTE AUTO 0.01 K/mm3 (0.00-0.68); EOSINOPHILS PERCENT AUTO 0 % (0-6); Hematocrit 38.6 % (33.0-51.0); Hemoglobin 12.8 g/dL (11.5-16.0); IMMATURE GRAN ABSOLUTE AUTO 0.11 K/mm3 (0.00-0.10); IMMATURE GRAN PERCENT AUTO 1 % (0-1); LYMPHOCYTES ABSOLUTE AUTO 0.51 K/mm3 (0.84-5.20); LYMPHOCYTES PERCENT AUTO 4 % (21-46); MONOCYTES ABSOLUTE AUTO 0.62 K/mm3 (0.16-1.47); MONOCYTES PERCENT AUTO 5 % (4-13); Mean Corpuscular HGB 29.3 pg (26.0-34.0); Mean Corpuscular HGB Conc 33.2 g/dL (31.5-36.5); Mean Corpuscular Volume 88 fL (80-100); Mean Platelet Volume 10.3 fL (9.1-12.4); NEUTROPHILS ABSOLUTE AUTO 10.78 K/mm3 (1.96-9.15); NEUTROPHILS PERCENT AUTO 90 % (41-73); Platelet Count 307 K/mm3 (150-400); RDW Coefficient Variation 11.8 % (11.7-14.2); RDW Standard Deviation 38.4 fL (35.1-46.3); Red Blood Cell Count 4.37 M/mm3 (3.80-5.20); White Blood Cell Count 12.04 K/mm3 (4.00-11.30)
[2018-06-18 04:39] LABS: Anion Gap 8 mmol/L (6-16); Blood Urea Nitrogen 25 mg/dL (8-24); Bun/Creatinine Ratio 39.2 (12.0-20.0); CO2, Blood 27 mmol/L (21-32); Calcium, Blood 8.5 mg/dL (8.5-10.1); Chloride, Blood 101 mmol/L (98-108); Creatinine, Blood 0.64 mg/dL (0.40-1.00); Glomerular Filtration Rate >60 (60-); Glucose, Blood 346 mg/dL (70-99); Potassium, Blood 4.5 mmol/L (3.5-5.5); Sodium, Blood 136 mmol/L (136-145)
--- NOTE | 2018-06-18 06:48 | NUR ---
SUMMARY PT RESTING IN BED ON AIRVO 55L FIO2 56%. WAS ABLE TO TITRATE FIO2 DOWN FROM 65%. GETS SOB WITH EXERTION BUT RECOVERS QUICKLY. OOB TO BSC WITH STANDBY ASSIST. NO SIGN OF DISTRESS, NO OTHER CHANGES.
--- NOTE | 2018-06-18 10:14 | NUR ---
RECEIVED REPORT AND ASSUMED CARE OF PATIENT. SHE IS PLEASANT AND COOPERATIVE WITH CARE. SHE EXPRESSES CONCERN ABOUT SOME SOB WITH EXERTION, HOWEVER, SHE IS ABLE TO STAND AMD MOVE TO CHAIR WITH MINIMAL ASSISTANCE. AIRVO IS SET TO 55 LPM AND 65% FIO2. O2 SAT IS 87-92% PT STATED, "I AM STARTING TO FEEL BETTER TODAY." CALLED INFECTION CONTROL REGARDING ISOLATION FOR PATIENT. SHE MEETS THE CRITERIA TO DISCONTINUE ISOLATION AT THIS TIME.
--- NOTE | 2018-06-18 13:10 | NUR ---
GOT PATIENT UP AND TO SHOWER TODAY WITH SHOWER CHAIR. RESPIRATORY CARE SET UP PORTALBE O2 WITH HIGH FLOW NC WITH 15 LPM. O2 SAT 90-95% DURING SHOWER. PT REPORTED MUCH RELIEF AND SATISFACTION WITH SHOWER. ASSISTED PT BACK INTO CHAIR TO REST AND EAT LUNCH.
--- NOTE | 2018-06-18 17:48 | NUR ---
PT HAS MADE A LOT OF POSITIVE PROGRESS THROUGHOUT THIS SHIFT. OXYGEN NEEDS ARE CURRENTLY AIRVO AT 55 LPM WITH FIO2 OF 55%. O2 SAT BETWEEN 86-95%. PT IS TOLERATING WELL. THIS AFTERNOON SHE STATES, "I AM FEELING SO GOOD THIS AFTERNOON." SHE DID STATE SHE WAS A LITTLE TIRED, BUT WITH THE ACTIVITY OF SHOWERING AND UP IN THE CHAIR SHE HAS MADE GOOD PROGRESS THROUGHOUT THE SHIFT. WILL CONTINUE TO MONITOR AND GIVE REPORT TO YAN RN.
--- NOTE | 2018-06-18 22:03 | NUR ---
PT RESTING IN BED ON AIRVO 55L 55%. PT IS ABLE TO HOLD CONVERSATION WITHOUT DESATING. HAS BEEN USING HER IS T/O THE DAY AND HER LUNGS SOUND MORE CLEAR. DENIES PAIN AND N/V. STATES SOB FEELS BETTER. NO SIGN OF DISTRESS. SEE ASSESSMENT.
--- NOTE | 2018-06-19 06:31 | NUR ---
PT DID WELL ON AIRVO ALL NIGHT 55L 55%. DESATS TO 80'S WHEN OOB BUT RECOVERS QUICKLY. NO SIGN OF DISTRESS. NO CHANGES.
--- NOTE | 2018-06-19 08:00 | NUR ---
PT PLEASANT, COOP A/O, DENIES PAIN. TALKINNG IN 4-5 WORD SENTENCES. SITTING UP IN BED. H/R REG, NO MURMER NOTED. PER TELE : SINUS TEA AT 58. LUNGS CLEAR RESP SHORT QUICK, RESP 20-22. SHALLOW. ON AIRVO AT 55/55. BT X4 LAST BM 3 DAYS STATES TOOK MED LAST EVENING, WILL FOLLOW FOR BM TODAY. VOIDFS PER BSC SBA. NO OTHER CONCERNS AT THIS RISHABH. BED IN LWOW POSITOIN, CALL LITE IN REACH, CALLS APPROP
--- NOTE | 2018-06-19 18:41 | NUR ---
IV CHANGED THIS ANKITA. PT FORTUNATO WELL. HUSB IN ROOM MOST OF DAY. PLAYING CARDS AND WATCHING VIDEOS. OFFERED A PEPSI TODAY. EDUCATED ON I/S AND PICKLE. PT STATES DID STAND AND DID WELL WITHOUT SETTING LOW O2 METER OFF. THEY WERE PLEASED. PT ENCOURAGED TO DO MORE DEEP BREATHING. NO OTHER CONCERNS AT THIS TIME. BED IN LOW POSITION, CALL LITE IN REACH, CALLS APPROP
--- NOTE | 2018-06-19 23:30 | NUR ---
CARE ASSUMED REPORT RECEIVED, CARE ASSUMED AT 1900. VITALS STABLE, SEE FLOWSHEET. SEE ASSESSMENT. PT COOPERATIVE WITH CARE, EXPRESSES NEEDS APPROPRIATELY. AT BEDSIDE.
[2018-06-20 03:29] LABS: BASOPHILS ABSOLUTE AUTO 0.01 K/mm3 (0.00-0.23); BASOPHILS PERCENT AUTO 0 % (0-2); EOSINOPHILS ABSOLUTE AUTO 0.02 K/mm3 (0.00-0.68); EOSINOPHILS PERCENT AUTO 0 % (0-6); Hematocrit 38.6 % (33.0-51.0); Hemoglobin 12.8 g/dL (11.5-16.0); IMMATURE GRAN ABSOLUTE AUTO 0.14 K/mm3 (0.00-0.10); IMMATURE GRAN PERCENT AUTO 1 % (0-1); LYMPHOCYTES ABSOLUTE AUTO 0.59 K/mm3 (0.84-5.20); LYMPHOCYTES PERCENT AUTO 4 % (21-46); MONOCYTES ABSOLUTE AUTO 0.58 K/mm3 (0.16-1.47); MONOCYTES PERCENT AUTO 4 % (4-13); Mean Corpuscular HGB 28.9 pg (26.0-34.0); Mean Corpuscular HGB Conc 33.2 g/dL (31.5-36.5); Mean Corpuscular Volume 87 fL (80-100); Mean Platelet Volume 10.4 fL (9.1-12.4); NEUTROPHILS ABSOLUTE AUTO 12.03 K/mm3 (1.96-9.15); NEUTROPHILS PERCENT AUTO 90 % (41-73); Platelet Count 377 K/mm3 (150-400); RDW Coefficient Variation 11.9 % (11.7-14.2); RDW Standard Deviation 38.5 fL (35.1-46.3); Red Blood Cell Count 4.43 M/mm3 (3.80-5.20); White Blood Cell Count 13.37 K/mm3 (4.00-11.30)
[2018-06-20 03:51] LABS: Anion Gap 7 mmol/L (6-16); Blood Urea Nitrogen 28 mg/dL (8-24); Bun/Creatinine Ratio 43.1 (12.0-20.0); CO2, Blood 27 mmol/L (21-32); Calcium, Blood 8.5 mg/dL (8.5-10.1); Chloride, Blood 102 mmol/L (98-108); Creatinine, Blood 0.65 mg/dL (0.40-1.00); Glomerular Filtration Rate >60 (60-); Glucose, Blood 300 mg/dL (70-99); Magnesium, Blood 2.3 mg/dL (1.6-2.4); Phosphorus, Blood 4.5 mg/dL (2.5-4.9); Potassium, Blood 4.4 mmol/L (3.5-5.5); Sodium, Blood 136 mmol/L (136-145)
--- NOTE | 2018-06-20 06:08 | NUR ---
SUMMARY VITLAS STABLE THROUGHOUT THE NIGHT. AIRVO SETTINGS UNCHANGED. PT HAS SLEPT MAJORITY OF NIGHT, CALLING APPROPRIATELY FOR NEEDS. SEE ASSESSMENTS/FLOWSHEETS.
--- NOTE | 2018-06-20 09:30 | NUR ---
ASSUMED CARE: REPORT RECEIVED FROM TAMMY Patel RN. ASSUMED CARE OF THIS PT AT APPROX 0700. ON ASSESSMENT, THE PT IS RESTING QUIETLY. SHE DOES EXPERIENCE DESATS TO APPROX 82% W/ TX TO BSC, RECOVERS AFTER A PERIOD OF 3-5 MINUTES. WILL CONTINUE TO MONITOR & UPDATE NEEDED.
--- NOTE | 2018-06-20 10:49 | NUR ---
DR. ALVAREZ: PROVIDER AT BEDSIDE TO ASSESS PT. UPDATED ON POC. ORDERS HAVE BEEN PLACED. WILL CONTINUE TO MONITOR & UPDATE NEEDED.
--- NOTE | 2018-06-20 18:16 | NUR ---
SHIFT SUMMARY: PT A&O, PLEASANT & COOPERATIVE. SHE HAS MADE GOOD PROGRESS TODAY & WAS ABLE TO AMBULATE APPROX 150 FEET FROM ROOM, TO SHOWER, & BACK TO ROOM TODAY. PORTABLE SAT MONITOR IN USE AT THIS TIME, PT DESATS TO 89% DURING AMBULATION BUT MAINTAINS AVG O2 SATS APPROX 92% DURING SHOWER. HI-FLOW NC & PORTABLE O2 TANK AT 25 L/MIN USED DURING THAT TIME. PT HAS OTHERWISE BEEN USING AIRVO @ 55 L/MIN & 65% FiO2 T/O SHIFT. MONITOR SHOWS SR, TEA AT TIMES, AVG HR 70s. PT HAS GOOD APPETITE, IS VOIDING W/O DIFFICULTY. SKIN OVERALL CDI. WILL CONTINUE TO MONITOR & REPORT OFF TO ONCOMING RN.
[2018-06-21 03:09] LABS: BASOPHILS ABSOLUTE AUTO 0.01 K/mm3 (0.00-0.23); BASOPHILS PERCENT AUTO 0 % (0-2); EOSINOPHILS ABSOLUTE AUTO 0.16 K/mm3 (0.00-0.68); EOSINOPHILS PERCENT AUTO 1 % (0-6); Hematocrit 37.1 % (33.0-51.0); Hemoglobin 12.2 g/dL (11.5-16.0); IMMATURE GRAN ABSOLUTE AUTO 0.09 K/mm3 (0.00-0.10); IMMATURE GRAN PERCENT AUTO 1 % (0-1); LYMPHOCYTES PERCENT AUTO 14 % (21-46); MONOCYTES PERCENT AUTO 10 % (4-13); Mean Corpuscular HGB 29.6 pg (26.0-34.0); Mean Corpuscular HGB Conc 32.9 g/dL (31.5-36.5); Mean Platelet Volume 10.6 fL (9.1-12.4); NEUTROPHILS ABSOLUTE AUTO 8.39 K/mm3 (1.96-9.15); NEUTROPHILS PERCENT AUTO 74 % (41-73); Platelet Count 344 K/mm3 (150-400); RDW Coefficient Variation 11.9 % (11.7-14.2); RDW Standard Deviation 39.3 fL (35.1-46.3); Red Blood Cell Count 4.12 M/mm3 (3.80-5.20); White Blood Cell Count 11.35 K/mm3 (4.00-11.30)
[2018-06-21 03:10] LABS: Mean Corpuscular Volume 90 fL (80-100)
[2018-06-21 03:29] LABS: Anion Gap 8 mmol/L (6-16); Blood Urea Nitrogen 30 mg/dL (8-24); Bun/Creatinine Ratio 44.4 (12.0-20.0); CO2, Blood 28 mmol/L (21-32); Calcium, Blood 8.5 mg/dL (8.5-10.1); Chloride, Blood 103 mmol/L (98-108); Creatinine, Blood 0.68 mg/dL (0.40-1.00); Glomerular Filtration Rate >60 (60-); Glucose, Blood 159 mg/dL (70-99); Sodium, Blood 139 mmol/L (136-145)
--- NOTE | 2018-06-21 12:00 | NUR ---
ASSUMED CARE OF THIS PT FROM AMBROCIO GARCIA. INTRODUCED SELF TO PT AND ASKED IF THERE ARE ANY NEEDS.
--- NOTE | 2018-06-21 17:50 | NUR ---
SHIFT SUMMARY: PT IS ALERT AND ORIENTED X3. PT SITTING IN BED WITH VISITOR AT THE BEDSIDE. NO C/O PAIN AT THIS TIME. PT CONTINUES TO HAVE DYSPNEA WITH EXERTION. REMAINS ON AIRVO WITH 55L FLOW RATE AND FIO2-55%, WITH 02 SATS 93%. LUNGS ARE CLEAR BUT DIMINISHED IN THE BILATERAL BASES. -FULL CODE STATUS
--- NOTE | 2018-06-21 19:00 | NUR ---
REPORTED OFF TO AMBROCIO ANTHONY WHOM WILL ASSUME CARE OF THIS PT.
--- NOTE | 2018-06-21 19:20 | NUR ---
ASSESSMENT ASSUMED CARE OF PT. BEDSIDE REPORT GIVEN BY FRANCESCA ALBRECHT. PT AWAKE WITH AT BEDSIDE. PT STANDING AT BEDSIDE AND WALKING AROUND ROOM AD K[place]. PT REPORTS SORENESS TO BACK AND LEGS /, "IT'S FROM LAYING IN BED SO LONG". PT REFUSED PAIN MEDS. LUNGS CLEAR BUT DECREASED IN THE BASES. SPO2 93% AIRVO 45 LITERS 55%. NONPRODUCTIVE COUGH NOTED. HEART RATE REGULAR, BP STABLE. PT MOVES ALL EXT WELL. IV TO LEFT FOREARM SALINE LOCKED, SITE CLEAR, FLUSHED WITHOUT DIFFICULTY. BT+ ABD SOFT AND NONTENDER. DENIES N/V. SPO2 DOWN TO 90% WHILE PT UP AND AMB IN ROOM. PT SITTING BACK IN BED AND SPO2 CAME BACK UP TO 93%. TALKED WITH PT AND REGARDING O2 TITRATION AND ABOUT DIABETIES. ENCOURAGED UP AMB IN ROOM BUT REMINDED NOT TO OVER DUE.
--- NOTE | 2018-06-21 21:11 | NUR ---
HS MEDS BLOOD GLUCOSE 230, EXPLAINED LONG ACTING INSULIN AND HOW TO DRAW UP WITH A PEN. ALSO EXPLAINED SLIDING SCALE INSULIN AND HOW TO USE PEN. LANTUS AND HUMALOG GIVEN. HS MEDS GIVEN. TALKED WITH PT ABOUT GLUCOSE MONITORS.
--- NOTE | 2018-06-21 23:40 | NUR ---
REASSESSMENT PT SLEEPING, AWAKENS EASILY. LUNGS CLEAR BUT DECREASED IN THE BASES ON AIRVO AT 45 LITERS AND 55%. SPO2 93-95%, RESP RATE 18. BP STABLE. PT TURNING AND MOVING SELF IN BED. DENIES PAIN OR DISCOMFORT AT THIS TIME. WENT HOME FOR NIGHT. RT DOING AIRVO CHECK. PT VOIDED YELLOW URINE.
--- NOTE | 2018-06-22 04:00 | NUR ---
REASSESSMENT PT SLEEPING, AWAKENS EASILY. UP TO BATHROOM AD [place]. LUNGS CONT CLEAR BUT DECREASED IN THE BASES. AIRVO UNCHANGED. PT BACK TO SLEEP QUICKLY.
--- NOTE | 2018-06-22 05:56 | NUR ---
SHIFT SUMMARY PT SLEEPING. TURNING AND MOVING SELF IN BED. UP TO BATHROOM AD [place] WITH AIRVO. AIRVO CURRENTLY AT 45 LITERS 55%. RESP EVEN AND NONLABORED. LUNGS CONT CLEAR BUT DECREASED. SOB NOTED WITH ACTIVITY BUT RESOLVES WITH REST. SPO2 92-95% ON AIRVO. SPO2 DID DROP DOWN TO 88% WHEN PT WAS UP WALKING AROUND IN ROOM AT START OF NIGHT BUT QUICKLY CAME BACK UP TO 94% WHEN PT SAT DOWN ON THE BED. NO OTHER DROPS IN SPO2 NOTED DURING THE NIGHT. REPORT TO ON COMING NURSE
--- NOTE | 2018-06-22 07:55 | NUR ---
AM ASSESSMENT: PT IS SLEEPING UPON ARRIVAL. AWAKENS EASILY TO VERBAL STIMULI. MOVES SELF IN BED. DENIES ANY PAIN. LUNGS CLEAR BUT DIMINISHED IN THE BILATERAL BASES. SATS LOW 90% ON AIRVO WITH FLOW RATE 45L, [id number]%. STILL DYSPNEIC WITH MINIMAL EXERTION, AND WILL AT TIMES SLIGHTLY DESAT TO 88-89% RANGE BUT RECOVERS QUICKLY. PT VOIDS PER BSC. CALLS APPROPRIATELY FOR HER NEEDS.
--- NOTE | 2018-06-22 18:14 | NUR ---
SHIFT ASSESSMENT: PT REMAINS ALERT AND ORIENTED X3. REPORTS SOME BACK PAIN THIS AFTERNOON R/T LAYING IN BED. PT IS ANXIOUS TO GET TO ANOTHER ROOM WHERE SHE CAN AMBULATE AROUND THE ROOM MORE. PT IS NOW MEDICAL, NO TELEMETRY STATUS AND WILL TNX WHEN A BED IS AVAILABLE. PT WAS SWITCHED FROM AIRVO TO HFNC @ 10L WITH SATS LOW 90% RANGE. LUNGS REMAIN CLEAR BUT DIMINISHED IN THE BILATERAL BASES. CALL LIGHT WITHIN REACH. AT BEDSIDE VISITING. -MEDICAL STATUS
--- NOTE | 2018-06-22 19:05 | NUR ---
ASSESSMENT ASSUSMED CARE. PT SIITTING ON EDGE OF BED PLAYING CARDS WITH . DENIES PAIN STATES,"I WAS A LITTLE SORE BUT AFTER GETTING UP AND WALKING AND HAVING A SHOWER I'M FEELING BETTER". LUNGS CLEAR BUT DECREASED IN THE BASES ON HIGH FLOW O2 AT 11 LITERS. NONPRODUCTIVE COUGH NOTED. MORE AIR MOVEMENT NOTED TONIGHT COMPARED TO LAST NIGHT. HEART RATE REGULAR, BP STABLE. NO EDEMA. BT+ ABD SOFT AND NONTENDER, DENIES N/V.
--- NOTE | 2018-06-22 20:24 | NUR ---
BLOOD GLUCOSE/HS MEDS PT SITTING UP IN BED WATCHING TV WITH . BLOOD GLUCOSE 232, 7 UNITS HUMALOG GIVEN AND 25 UNITS LANTUS GIVEN. TEACHING PT TO DIAL INSULIN WITH PEN. PT ABLE TO DIAL LANTUS AND FOLLOWING INSTRUCTIONS. PT STATES,"I HOPE I WILL NOT HAVE TO DO THIS AT HOME, I DON'T THINK I CAN GIVE MYSELF A SHOT". SUPPORT GIVE TO PT REGARDING INSULIN. HS MEDS GIVEN
--- NOTE | 2018-06-23 07:15 | NUR ---
ASSUMED CARE OF PATIENT; SEE ASSESSMENT CHARTING FOR DETAILS. PATIENT SLEEPING BUT ROUSED EASILY; DENIES DISCOMFORT. OXYGEN AT HI-FLOW HUMIDIFIED/11L/MIN. BIOX 93-95%. LUNGS DECREASED T/O; SCATTERED ANTERIOR RHONCHI WHICH CLEAR WITH COUGHING. COUGH MOIST AND PRODUCTIVE OF THICK/CLEAR MUCUS. UP TO BSC WITH STANDBY ASSIST. PATIENT WANTING TO GO HOME BUT REMAINS ON HIGH FLOW OXXYGEN; WILL START TITRATING DOWN TOLERATED.
--- NOTE | 2018-06-23 09:10 | NUR ---
DR. SEQUEIRA (HOSPITALIST) HERE; EVAL. PATIENT. PATIENT WANTING TO GO HOME TOMORROW; PHYSICIAN INFORMED PATIENT THAT HER O2 NEED IS TOO HIGH; NURSING CAN TITRATE DOWN TOLERATED.
--- NOTE | 2018-06-23 09:25 | NUR ---
UP TO BSC AND HAD LARGE BM; (OXYGEN LEVEL REDUCED TO 10L/MIN (HIGH FLOW).
--- NOTE | 2018-06-23 12:09 | NUR ---
OXYGEN REDUCED TO 9L/MIN VIA HIGH FLOW; BIOX 93-95%.
--- NOTE | 2018-06-23 16:45 | NUR ---
OXYGEN REDUCED TO 8L/MIN VIA HIGH FLOW; BIOX 95-96%.
--- NOTE | 2018-06-23 17:00 | NUR ---
HIGH FLOW OXYGEN REDUCED TO 7L; BIOX LOW TO MID 90'S; DENIES DYSPNEA.
--- NOTE | 2018-06-23 18:45 | NUR ---
SUMMARY: OVERALL STATUS IMPROVED; PATIENT REMAINS MED. FLOOR STATUS WITHOUT TELEMETRY. UP TO BSC AND TOILET WITH SBA ONLY. APPETITE GOOD AND NO GI UPSET. RN HAS TITRATED OXYGEN DOWN TO 7L/MIN VIA HIGH FLOW; BIOX STAYING >92%. HOPING TO GO HOME TOMORROW.
--- NOTE | 2018-06-23 19:30 | NUR ---
ASSESSMENT PT UP AMB IN ROOM. DENIES PAIN. STATES,"I FEEL GOOD, NOT SOB". SPO2 97% ON 7 LITERS HIGH FLOW O2, DECREASED O2 DOWN TO 6 LITERS. LUNGS CLEAR BUT DECREASED IN THE BASES. IMPROVED FROM YESTERDAY. NONPRODUCTIVE COUGH NOTED. HEART RATE REGULAR. BP STABLE. IV LEFT FOREARM LEAKING, DC'D INTACT. PT REFUSING NEW IV. STATES,"I'M GOING HOME TOMORROW. SO NO I DON'T WANT ANOTHER". GAIT STEADY.
--- NOTE | 2018-06-23 20:28 | NUR ---
MEDS/BLOOD GLUCOSE BLODD GLUCOSE 193, INSTRUCTED PT ON SLIDING SCALE INSULIN. HAD PT REVIEW GLUCOSE NUMBER AND FIND CORRECT UNITS TO GIVE. PT USED INSULIN PEN AND DIALED CORRECT AMOUNT. THIS NURSE GAVE INSULIN TO THE POST RIGHT ARM. PT TOLERATED WELL. HS MEDS GIVEN. SPO2 95% DECREASED O2 DOWN TO 5 LITERS.
--- NOTE | 2018-06-24 07:29 | NUR ---
ASSUMED CARE: PT RESTING QUIETLY IN BED. NO ACUTE NEEDS OR CONCERNS AT THIS TIME
--- NOTE | 2018-06-24 18:09 | NUR ---
SHIFT SUMMARY: PT INDEPENDENT IN ROOM. HAS REMAINED ON 4L HIGH FLOW NC. PLAN FOR DC WHEN O2 ABLE TO GET TO HER HOME. PRINT OUTS FOR DIABETES EDUCATION PROVIDED. ENCOURAGED PT TO REVIEW AND ASK QUESTIONS NEEDED. NO ACUTE CHANGES OR CONCERNS THIS SHIFT.
--- NOTE | 2018-06-24 19:00 | NUR ---
ASSUMED CARE ASSUMED CARE OF PATIENT. UP AD KAL[place] IN ROOM WITHOUT DIFFICULTY. REMAINS ON 4L HFNC AT THIS TIME. DENIES C/O SOB OR DYSPNEA. FREQUENT MOIST NON-PRODUCTIVE COUGH. C/O LOWER BACK PAIN/CRAMPING WITH SUBSEQUENT LLE NUMBNESS/TINGLING. PT STATES SHE HAS HAD THIS COMPLAINT PRIOR TO TODAY. DENIES C/O OTHER PAIN. VOIDING WITHOUT DIFFICULTY. SEE SHIFT ASSESSMENT FOR FULL ASSESSMENT.
--- NOTE | 2018-06-24 21:15 | NUR ---
AMBULATION PT REQUESTING TO BE ABLE TO GO FOR A WALK. INSTRUCTED PATIENT THAT SHE COULD GO FOR A SHORT WALK AT THIS TIME. AMBULATING OFF UNIT WITH O2 @ 5L HFNC. WALKING WITH PATIENT.
--- NOTE | 2018-06-25 06:25 | NUR ---
SHIFT SUMMARY NO ACUTE CHANGES DURING NOC. SLEPT INTERMITTENTLY. UP AD KAL[place]NA IN ROOM WITHOUT DIFFICULTY. REMAINS ON 4L HFNC WITH SATS 92-96%. RESPIRATIONS EVEN AND UNLABORED. DENIES C/O SOB OR DYSPNEA. CONTINUES WITH C/O LOWER BACK PAIN, BUT STATES PAIN IS BETTER WITH USE OF HEATING PAD. VOIDING WITHOUT DIFFICULTY. TOLERATING DIET. PT IS ANXIOUS TO GO HOME. WILL REPORT TO DAY SHIFT RN WHEN AVAILABLE.
--- NOTE | 2018-06-25 07:30 | NUR ---
Received report from Lisa ALBRECHT. Patient sleeing with high flow NC at 4 L and sats mid 90"s. Will awake at breakfast idf not already awake.
--- NOTE | 2018-06-25 09:30 | NUR ---
Patient awake sitting up in bed and setup for breakfast. CBG 122 no coverage needed. RT has reduced patient to 2L O2 via regular NC and sats still mid to upper 90%'s. She is able to communicate her needs and denies any pain or current needs.She tolerated breakfast and PO meds well. She is hoping to get home when power is on.
--- NOTE | 2018-06-25 11:30 | NUR ---
Patient walked to shower and manged self. She ambulated to room and is sitting in chair in room. She continues on 2L via NC and sats 94%.
--- NOTE | 2018-06-25 13:38 | NUR ---
Dr Vazquez has been by and she has discharge instructions. We are waiting for discharge planning to finish O2 for home and discharge planning. She will be going to [place] to stay with sister where they have power.
[2018-06-25] MEDS ORDERED: ALBU90OI INH (14:03)
[2018-06-25] MEDS ORDERED: ROBITUSSIN COU1 EACH PO (14:48)
[2018-06-25] MEDS ORDERED: GUAI600T33 PO (14:49)
[2018-06-25] MEDS ORDERED: Metformin HCl750 MG PO (14:51)
[2018-06-25] MEDS ORDERED: META800 PO (14:52)
--- NOTE | 2018-06-25 15:15 | NUR ---
Margi has been by and dropped off O2 and will meet up with her at home. I gave her discharge instructions and reviewed med and calll all of them in to Devante Hernandez. 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 she has no IV access.
--- NOTE | 2018-06-25 16:06 | NUR ---
Patient discharged to home and will follow up with jean pierre to fish bait picker supplies. arrived and she will fish bait picker scripts on way home. She was taken out via wheelchair.
== END 2018-06-25 16:00 | disposition home or self-care (01) | DRG 871 ==
LOC: ER 17:37 → MEDS 19:57 → PCU 19:57 → MEDS 21:40 → PCU 06-12 04:58 → ICUW 06-12 18:50
PROVIDERS: Internal Medicine; Internal Medicine Critical Care Medicine; Internal Medicine Pulmonary Disease; Physician Assistant; ADMIT Internal Medicine
PROC: 5A09357 Assistance with Respiratory Ventilation, Less than 24 Consecutive Hours, Continuous Positive Airway Pressure (ICD-10-PCS; principal; 2018-06-11)
DX: A41.9 Sepsis, unspecified organism (principal); J96.01 Acute respiratory failure with hypoxia; J18.9 Pneumonia, unspecified organism; B17.9 Acute viral hepatitis, unspecified; J45.909 Unspecified asthma, uncomplicated; R74.8 Abnormal levels of other serum enzymes; E11.65 Type 2 diabetes mellitus with hyperglycemia; K76.0 Fatty (change of) liver, not elsewhere classified; J10.1 Influenza due to other identified influenza virus with other respiratory manifestations; E66.9 Obesity, unspecified; Z68.35 Body mass index [BMI] 35.0-35.9, adult; T38.0X5A Adverse effect of glucocorticoids and synthetic analogues, initial encounter; Y92.239 Unspecified place in hospital as the place of occurrence of the external cause
CPT/HCPCS: 31720; 36415; 51702; 71045; 71046; 71260; 76705; 80048; 80053; 80069; 80074; 81001; 82803; 82947; 83036; 83605; 83735; 84100; 84145; 84484; 85025; 85027; 87040; 87486; 87581; 87633; 87798; 93005; 93010; 94640; 94660; 94667; 94761; 94762; 96360; 96361; 99285-25; J0696; J1650; J1956; J2060; J2920; J2930; J7030; J7040; J7120; Q9967